=== PATIENT | female | born 1955 ===

== ENCOUNTER 2017-03-31 10:27 | Emergency (ER) | payer BC ==
[2017-03-31 10:43] VITALS: TEMP 98.1; O2SAT 98
--- NOTE | 2017-03-31 10:47 | C.PDOC ---
History Of Present Illness 61 y/o female with pmhx arthritis, HTN presents to the ED with complaints of right foot pain radiating to right calf for the past 3 days. Pt notes mild swelling. Denies injury, trauma, numbness, weakness or any other complaints. No recent travel. Time Seen by Provider: 03/31/17 10:46 Chief Complaint (Nursing): Lower Extremity Problem/Injury History Per: Patient History/Exam Limitations: no limitations Onset/Duration Of Symptoms: Days Current Symptoms Are (Timing): Still Present Severity: Mild Recent travel outside of the [place]: No Past Medical History Reviewed: Historical Data, Nursing Documentation, Vital Signs Vital Signs: Last Vital Signs Temp 98.1 F 03/31/17 10:55 Pulse 69 03/31/17 12:38 Resp 18 03/31/17 12:38 BP 124/72 03/31/17 12:38 Pulse Ox 98 03/31/17 12:41 - Medical History PMH: Arthritis, Depression, HTN Family History: States: Unknown Family Hx - Social History Hx Tobacco Use: No Hx Alcohol Use: No Hx Substance Use: No - Immunization History Hx Tetanus Toxoid Vaccination: No Hx Influenza Vaccination: No Hx Pneumococcal Vaccination: No Review Of Systems Except As Marked, All Systems Reviewed And Found Negative. Constitutional: Negative for: Fever, Chills Musculoskeletal: Positive for: Foot Pain (right foot pain radiating to calf) Neurological: Negative for: Weakness, Numbness Physical Exam - Physical Exam Appears: Non-toxic, No Acute Distress Skin: Warm, Dry, No Rash Head: Atraumatic, Normacephalic Extremity: Normal ROM, Tenderness (lateral right lower calf), No Pedal Edema, Capillary Refill (<2 seconds), No Swelling, Other (Negative Alina's) Pulses: Left Dorsalis Pedis: Normal, Right Dorsalis Pedis: Normal Neurological/Psych: Oriented x3, Normal Speech, Normal Motor, Normal Sensation ED Course And Treatment O2 Sat by Pulse Oximetry: 98 (room air) Pulse Ox Interpretation: Normal Medical Decision Making Medical Decision Making: DDx: Muscle Strain vs DVT Plan: * XR right knee, tibula/fibula * D-dimer * motrin Pt with musculoskeletal pain, low risk for DVT. Dimer was negative. Patient has a muscle strain/tendon strain. She will be Rx Motrin and f/u with her PMD Dr. Freeman in 1-2days. She is able to walk with no ataxia. Disposition Counseled Patient/Family Regarding: Studies Performed, Diagnosis, Need For Followup, Rx Given - Disposition Referrals: Miguel Freeman MD [Medical Doctor] - Disposition: HOME/ ROUTINE Disposition Time: 12:38 Condition: GOOD Additional Instructions: Mr Bagley, thank you for letting us take care of you today. Your provider was Dr. Lindsey. You were treated for Foot/Leg Strain. The emergency medical care you received today was directed at your acute symptoms. If you were prescribed any medication, please fill it and take as directed. It may take several days for your symptoms to resolve. Return to the Emergency Department if your symptoms worsen, do not improve, or if you have any other problems. Please contact your doctor or call one of the physicians/clinics you have been referred to that are listed on the Patient Visit Information form that is included in your discharge packet. Bring any paperwork you were given at discharge with you along with any medications you are taking to your follow up visit. Our treatment cannot replace ongoing medical care by a primary care provider (PCP) outside of the emergency department. Thank you for allowing the [facility] team to be part of your care today. If you had an X-Ray or CT scan: A Radiologist will review the ED reading if any change in treatment is needed we will contact you. If you had a blood, urine, or wound culture: It will take several days for the results, if any change in treatment is needed we will contact you. If you had an STI test: It will take 48 hours for the results. Please call after 1 week if you have not heard back. Prescriptions: Ibuprofen [Motrin] 600 mg PO Q6 PRN #30 tab PRN Reason: Pain, Moderate (4-7) Instructions: Muscle Strain (ED) Forms: General Discharge Instructions, Work Excuse Print Language: LAO - POA Present On Arrival: None - Clinical Impression Clinical Impression: Muscle strain - Scribe Statement The provider has reviewed the documentation as recorded by the Torri Salinas Provider Attestation: All medical record entries made by the Zakibfrandy were at my direction and personally dictated by me. I have reviewed the chart and agree that the record accurately reflects my personal performance of the history, physical exam, medical decision making, and the department course for this patient. I have also personally directed, reviewed, and agree with the discharge instructions and disposition.
[2017-03-31 10:58] VITALS: RESP 18
[2017-03-31 12:39] VITALS: BP 124/72; PULSE 69
== END 2017-03-31 12:39 | disposition home or self-care (01) ==
LOC: C.ER 10:27
DX: S86.911A Strain of unspecified muscle(s) and tendon(s) at lower leg level, right leg, initial encounter (principal); X58.XXXA Exposure to other specified factors, initial encounter; Y93.9 Activity, unspecified; Y92.9 Unspecified place or not applicable

== ENCOUNTER 2017-06-18 02:45 | Emergency (ER) | payer BC ==
--- NOTE | 2017-06-18 04:21 | C.PDOC ---
History Of Present Illness 61 year old female who presents to the ER with a complaint of a throbbing, aching left arm pain that began approximately 1 hour ago. Patient states the pain is from shoulder to elbow and note it worsens with movement. Denies recent injury, numbness, weakness, chest pain, or SOB. Time Seen by Provider: 06/18/17 03:26 Chief Complaint (Nursing): Upper Extremity Problem/Injury History Per: Patient History/Exam Limitations: no limitations Onset/Duration Of Symptoms: Hrs Current Symptoms Are (Timing): Still Present Quality: Aching, Other (Throbbing) Exacerbating Factor(s): Movement Recent travel outside of the [place]: No Past Medical History Reviewed: Historical Data, Nursing Documentation, Vital Signs Vital Signs: Last Vital Signs Temp 97.7 F 06/18/17 03:11 Pulse 71 06/18/17 03:11 Resp 20 06/18/17 03:11 BP 168/84 H 06/18/17 03:11 Pulse Ox 97 06/18/17 04:21 - Medical History PMH: Arthritis, Depression, HTN Surgical History: No Surg Hx Family History: States: Unknown Family Hx - Social History Hx Tobacco Use: No Hx Alcohol Use: No Hx Substance Use: No - Immunization History Hx Tetanus Toxoid Vaccination: No Hx Influenza Vaccination: No Hx Pneumococcal Vaccination: No Review Of Systems Cardiovascular: Negative for: Chest Pain Respiratory: Negative for: Shortness of Breath Musculoskeletal: Positive for: Arm Pain Neurological: Negative for: Weakness, Numbness Physical Exam - Physical Exam Appears: Non-toxic Skin: Normal Color, Warm, Dry Head: Atraumatic, Normacephalic Oral Mucosa: Moist Chest: Symmetrical Cardiovascular: Rhythm Regular Respiratory: Normal Breath Sounds, No Accessory Muscle Use, No Rales, No Rhonchi , No Wheezing Extremity: Tenderness (Mild to left upper arm and with abduction of left shoulder), No Deformity, No Swelling, No Other (Erythema, mass, wrist tenderness ) Pulses: Left Radial: Normal, Right Radial: Normal Neurological/Psych: Oriented x3, Normal Speech, Normal Motor, Normal Sensation, Other (No focal deficits) ED Course And Treatment O2 Sat by Pulse Oximetry: 97 (Room air) Pulse Ox Interpretation: Normal - Other Rad Left shoulder x-ray X-Ray: Interpreted by Me, Viewed By Me Interpretation: No acute fractures or dislocations. Medical Decision Making Medical Decision Making: Impression: arm pain Differential diagnosis includes but not limited to: muscle strain, arm sprain, contusion, tendonitis Plan: Xray at patient request ice pack Motrin Progress: EKG was obtained during triage, for "left arm pain", no chest pain. EKG shows NS at 74 bpm with occasional PVC Xray reviewed by me showing no fracture or dislocation, mild degenerative change Patient advised to ice, rest, and take NSAID for pain Instruct to follow up with orthopedic if the pain persists. Disposition Counseled Patient/Family Regarding: Diagnosis, Need For Followup, Rx Given - Disposition Referrals: Ashley Cleveland MD [Staff Provider] - Disposition: HOME/ ROUTINE Disposition Time: 04:18 Condition: STABLE Additional Instructions: Your xray was normal, no fracture. Please apply ice to area 15 minutes three times a day. Take Naproxen as needed for pain every 12 hours, with food to not upset stomach. Follow up with orthopedic if pain persists over one week. Prescriptions: Naproxen [Naprosyn] 1 tab PO BID PRN #25 tab PRN Reason: Pain Instructions: Muscle Strain (ED) Forms: [employer] (Amharic) - POA Present On Arrival: None - Clinical Impression Clinical Impression: Muscle strain - Scribe Statement The provider has reviewed the documentation as recorded by the Scribfrandy Montejo All medical record entries made by the Scribe were at my direction and personally dictated by me. I have reviewed the chart and agree that the record accurately reflects my personal performance of the history, physical exam, medical decision making, and the department course for this patient. I have also personally directed, reviewed, and agree with the discharge instructions and disposition.
[2017-06-18 04:26] VITALS: BP 166/80; PULSE 74; RESP 16; TEMP 98
[2017-06-18 04:27] VITALS: O2SAT 97
--- NOTE | 2017-06-18 13:00 | RAD ---
PROCEDURE: Radiographs of the Left Shoulder HISTORY: pain to left arm x1 hour, no trauma COMPARISON: No prior. FINDINGS: BONES: Normal. No fracture. JOINTS: Mild osteoarthritis of glenohumeral articulation. Degenerative arthritis at acromioclavicular articulation. Globular calcification adjacent to greater tuberosity consistent with calcific tendinitis. SOFT TISSUES: Normal. OTHER FINDINGS: None. IMPRESSION: Mild glenohumeral osteoarthritis. Acromioclavicular degenerative arthritis. Calcific tendinitis.
--- NOTE | 2017-06-19 12:36 | CARD ---
APPROVED REPORT EKG Measurement Heart [id number] <Conclusion> Sinus rhythm with occasional premature ventricular complexes Otherwise normal ECG
== END 2017-06-18 04:25 | disposition home or self-care (01) ==
LOC: C.ER 02:45
DX: S46.912A Strain of unspecified muscle, fascia and tendon at shoulder and upper arm level, left arm, initial encounter (principal); X58.XXXA Exposure to other specified factors, initial encounter